=== PATIENT | female | born 1945 | race Caucasian/White ===

== ENCOUNTER 2016-06-12 10:25 | Emergency (ER) | payer MEDICARE, SELFPAY ==
[~2016-06-12 10:25] MED LIST: ASPIR-LOW81 MG PO; COMBIVENT0.074 GM/I INH; ISOSORBIDE MON120 MG PO; LEVOTHYROXINE88 MCG PO; METOPROLOL TART25 MG PO; PLAVIX 75 MG TA75 MG PO; PRAVASTATIN SOD40 MG PO; SPIRONOLACTONE25 MG PO; SYMBICORT 160-1 INHA INH; VITAMIN B-121000 MCG PO; VITAMIN D1000 UNI1 PO
== END 2016-06-12 15:30 | disposition home or self-care (01) ==
LOC: ER1 10:25
DX: S52.125A Nondisplaced fracture of head of left radius, initial encounter for closed fracture (principal); I25.810 Atherosclerosis of coronary artery bypass graft(s) without angina pectoris; I10 Essential (primary) hypertension; J44.9 Chronic obstructive pulmonary disease, unspecified; Z95.1 Presence of aortocoronary bypass graft; Z79.02 Long term (current) use of antithrombotics/antiplatelets; Z79.82 Long term (current) use of aspirin; W10.9XXA Fall (on) (from) unspecified stairs and steps, initial encounter; Y93.01 Activity, walking, marching and hiking; Z79.899 Other long term (current) drug therapy
CPT/HCPCS: 29105; 73030; 73060; 73080; 73090; 73110; 99283

== ENCOUNTER → 2020-06-18 | Outpatient (CLI) | payer MEDICARE ==
[~2020-06-18] MED LIST changes: +AUGMENTIN 875-1 EACH PO; +LASIX20 MG PO; +NITROGLYCERIN0.4 MG SL; +RANEXA1000 MG PO; +TOPROL XL25 MG PO; +ZOFRAN4 MG PO
== END ==
LOC: HEART 5 11:07
DX: J44.9 Chronic obstructive pulmonary disease, unspecified (principal); R94.2 Abnormal results of pulmonary function studies; F17.210 Nicotine dependence, cigarettes, uncomplicated
CPT/HCPCS: 94060; 94729

== ENCOUNTER → 2020-06-19 | Outpatient (CLI) | payer MEDICARE | LOC: KOH-I 09:37 | DX: F17.210 Nicotine dependence, cigarettes, uncomplicated (principal); R59.0 Localized enlarged lymph nodes | CPT/HCPCS: 71271 ==

== ENCOUNTER → 2020-06-20 | Outpatient (CLI) | payer MEDICARE | LOC: ECHO 10:23 → NM 13:00 | DX: I20.9 Angina pectoris, unspecified (principal); J44.9 Chronic obstructive pulmonary disease, unspecified | CPT/HCPCS: ECHO; 36600; 82803; 93306; J2785 ==

== ENCOUNTER 2020-08-20 10:07 | Emergency (ER) | payer MEDICARE, OTHER ==
[2020-08-20 11:50] LABS: HEMOGLOBIN 11.2 gm/dl (12.3-15.3); RED BLOOD COUNT 4.13 M/UL (4.00-5.10); WHITE BLOOD COUNT 7.8 K/UL (4.5-11.0)
[2020-08-20 12:13] LABS: BUN/CREATININE RATIO 9 (0-10)
== END 2020-08-20 14:34 | disposition home or self-care (01) ==
LOC: ER1 10:07
PROVIDERS: Physician Assistant
DX: R04.2 Hemoptysis (principal); I25.10 Atherosclerotic heart disease of native coronary artery without angina pectoris; J44.9 Chronic obstructive pulmonary disease, unspecified; Z20.822 Contact with and (suspected) exposure to COVID-19; F17.210 Nicotine dependence, cigarettes, uncomplicated; Z90.710 Acquired absence of both cervix and uterus; Z95.1 Presence of aortocoronary bypass graft
CPT/HCPCS: 0240U; 80053; 82550; 82553; 83874; 83880; 84484; 85025; 85379; 87070; 87205; 93005; 99285; Q9967

== ENCOUNTER 2020-09-05 14:13 | Emergency (ER) | payer MEDICARE, SELFPAY ==
[2020-09-05 14:59] LABS: HEMOGLOBIN 11.4 gm/dl (12.3-15.3); RED BLOOD COUNT 4.16 M/UL (4.00-5.10); WHITE BLOOD COUNT 9.1 K/UL (4.5-11.0)
[2020-09-05 15:45] LABS: BUN/CREATININE RATIO 11 (0-10)
[2020-09-05] MEDS ORDERED: AZITHROMYCIN250 MG PO (16:14)
[2020-09-05] MEDS ORDERED: OMNICEF 300 MG300 MG PO (16:14)
== END 2020-09-05 19:57 | disposition home or self-care (01) ==
LOC: ER1 14:13
PROVIDERS: Emergency Medicine
DX: R04.2 Hemoptysis (principal); I10 Essential (primary) hypertension; J44.9 Chronic obstructive pulmonary disease, unspecified; E87.1 Hypo-osmolality and hyponatremia; I25.10 Atherosclerotic heart disease of native coronary artery without angina pectoris; E78.5 Hyperlipidemia, unspecified; Z95.1 Presence of aortocoronary bypass graft; Z90.710 Acquired absence of both cervix and uterus; Z87.891 Personal history of nicotine dependence
CPT/HCPCS: 71045; 80053; 82550; 82553; 83874; 83880; 84484; 85025; 85379; 85610; 85730; 93005; 96374; 99284; J7030

== ENCOUNTER → 2020-10-10 | Day surgery (SDC) | payer MEDICARE ==
[~2020-10-10] MED LIST changes: +AZITHROMYCIN250 MG PO; +OMNICEF 300 MG300 MG PO
== END | disposition home or self-care (01) ==
LOC: OR 05:46
PROVIDERS: Internal Medicine Pulmonary Disease
PROC: 0BB38ZX Excision of Right Main Bronchus, Via Natural or Artificial Opening Endoscopic, Diagnostic (ICD-10-PCS; principal; 2020-10-10 07:30)
DX: D49.1 Neoplasm of unspecified behavior of respiratory system (principal); R59.0 Localized enlarged lymph nodes; J44.9 Chronic obstructive pulmonary disease, unspecified; I25.10 Atherosclerotic heart disease of native coronary artery without angina pectoris; F17.210 Nicotine dependence, cigarettes, uncomplicated; I10 Essential (primary) hypertension; I25.2 Old myocardial infarction; E78.5 Hyperlipidemia, unspecified; E03.9 Hypothyroidism, unspecified; M54.5 Low back pain; G47.33 Obstructive sleep apnea (adult) (pediatric); K21.9 Gastro-esophageal reflux disease without esophagitis; Z20.822 Contact with and (suspected) exposure to COVID-19; Z79.82 Long term (current) use of aspirin; Z79.02 Long term (current) use of antithrombotics/antiplatelets; Z79.899 Other long term (current) drug therapy; Z95.5 Presence of coronary angioplasty implant and graft; Z95.1 Presence of aortocoronary bypass graft
CPT/HCPCS: J0171; J2704; J7120

== ENCOUNTER → 2020-10-31 | Outpatient (CLI) | payer MEDICARE | LOC: MRI 12:40 | DX: C34.90 Malignant neoplasm of unspecified part of unspecified bronchus or lung (principal) | CPT/HCPCS: 70553; A9577 ==

== ENCOUNTER → 2020-11-06 | Day surgery (SDC) | payer MEDICARE | END | disposition home or self-care (01) | LOC: OR 05:38 | PROVIDERS: Surgery | PROC: 02HV33Z Insertion of Infusion Device into Superior Vena Cava, Percutaneous Approach (ICD-10-PCS; principal; 2020-11-06 07:30) | DX: C34.01 Malignant neoplasm of right main bronchus (principal); C79.9 Secondary malignant neoplasm of unspecified site; J44.9 Chronic obstructive pulmonary disease, unspecified; I25.10 Atherosclerotic heart disease of native coronary artery without angina pectoris; K59.09 Other constipation; E78.5 Hyperlipidemia, unspecified; I10 Essential (primary) hypertension; I25.2 Old myocardial infarction; E03.9 Hypothyroidism, unspecified; G47.33 Obstructive sleep apnea (adult) (pediatric); E55.9 Vitamin D deficiency, unspecified; F17.210 Nicotine dependence, cigarettes, uncomplicated; G25.81 Restless legs syndrome; E53.8 Deficiency of other specified B group vitamins; K21.9 Gastro-esophageal reflux disease without esophagitis; D64.9 Anemia, unspecified; R32 Unspecified urinary incontinence; Z20.822 Contact with and (suspected) exposure to COVID-19; Z95.1 Presence of aortocoronary bypass graft; Z79.82 Long term (current) use of aspirin; Z95.5 Presence of coronary angioplasty implant and graft; Z79.02 Long term (current) use of antithrombotics/antiplatelets; Z79.899 Other long term (current) drug therapy | CPT/HCPCS: 77001; C1769; C1788; J0690; J1100; J1642; J1644; J2001; J2405; J2704; J3010; J7030; J7040; J7120 ==

== ENCOUNTER 2021-01-09 17:44 | Inpatient (IN) | payer MEDICARE ==
[~2021-01-09] VITALS: Ht 157.5 cm; Wt 66.2 kg
[2021-01-09 20:08] LABS: HEMOGLOBIN 8.5 gm/dl (12.3-15.3); RED BLOOD COUNT 3.1 M/UL (4.00-5.10)
[2021-01-09 20:11] LABS: WHITE BLOOD COUNT 0.6 K/UL (4.5-11.0)
[2021-01-09 20:35] LABS: BUN/CREATININE RATIO 20 (0-10)
[2021-01-10] MEDS ORDERED: MAGIC MOUTH WASH (01:54)
[2021-01-10] MEDS ORDERED: [UNRECOGNIZED DRUG - OTHER] (01:54)
[2021-01-10] MEDS ORDERED: ONDANSETRON ODT8 MG PO (01:55)
[2021-01-10 05:59] LABS: HEMOGLOBIN 8.2 gm/dl (12.3-15.3); RED BLOOD COUNT 2.97 M/UL (4.00-5.10)
[2021-01-10 06:01] LABS: WHITE BLOOD COUNT 0.4 K/UL (4.5-11.0)
[2021-01-10 06:43] LABS: BUN/CREATININE RATIO 17 (0-10)
--- NOTE | 2021-01-10 15:21 | NUR ---
SCUDS APPLIED ORDERED
[2021-01-11 09:00] LABS: RED BLOOD COUNT 3.01 M/UL (4.00-5.10)
[2021-01-11 09:03] LABS: WHITE BLOOD COUNT 0.4 K/UL (4.5-11.0)
[2021-01-12 08:01] LABS: HEMOGLOBIN 7.1 gm/dl (12.3-15.3)
[2021-01-12 08:04] LABS: RED BLOOD COUNT 2.69 M/UL (4.00-5.10); WHITE BLOOD COUNT 0.9 K/UL (4.5-11.0)
[2021-01-12 08:06] LABS: BUN/CREATININE RATIO 14 (0-10)
[2021-01-13 07:29] LABS: HEMOGLOBIN 8.7 gm/dl (12.3-15.3)
[2021-01-13 07:36] LABS: RED BLOOD COUNT 3.11 M/UL (4.00-5.10); WHITE BLOOD COUNT 2.1 K/UL (4.5-11.0)
[2021-01-13 08:15] LABS: BUN/CREATININE RATIO 17 (0-10)
[2021-01-14 05:53] LABS: HEMOGLOBIN 8.7 gm/dl (12.3-15.3); RED BLOOD COUNT 3.05 M/UL (4.00-5.10)
[2021-01-14 06:09] LABS: WHITE BLOOD COUNT 3.2 K/UL (4.5-11.0)
[2021-01-14] MEDS ORDERED: DOCUSATE SODIU100 MG PO (10:17)
[2021-01-14] MEDS ORDERED: SENNA LAX8.6 MG PO (10:17)
== END 2021-01-14 13:56 | disposition home or self-care (01) | DRG 809 ==
LOC: ER1 17:44 → CDU 23:22 → MED SURG 4 23:22 → M/S 01-10 19:03
PROVIDERS: Internal Medicine; Physician Assistant; Registered Nurse; ADMIT Internal Medicine
PROC: 30233N1 Transfusion of Nonautologous Red Blood Cells into Peripheral Vein, Percutaneous Approach (ICD-10-PCS; principal; 2021-01-12)
DX: D61.811 Other drug-induced pancytopenia (principal); C34.90 Malignant neoplasm of unspecified part of unspecified bronchus or lung; D70.9 Neutropenia, unspecified; R50.81 Fever presenting with conditions classified elsewhere; Z20.822 Contact with and (suspected) exposure to COVID-19; R13.19 Other dysphagia; E78.5 Hyperlipidemia, unspecified; J43.9 Emphysema, unspecified; J45.909 Unspecified asthma, uncomplicated; G47.33 Obstructive sleep apnea (adult) (pediatric); F17.210 Nicotine dependence, cigarettes, uncomplicated; K12.32 Oral mucositis (ulcerative) due to other drugs; T50.8X5A Adverse effect of diagnostic agents, initial encounter; I10 Essential (primary) hypertension; I25.10 Atherosclerotic heart disease of native coronary artery without angina pectoris; Z95.1 Presence of aortocoronary bypass graft; Z79.01 Long term (current) use of anticoagulants; Z79.82 Long term (current) use of aspirin; Z95.5 Presence of coronary angioplasty implant and graft; Z90.710 Acquired absence of both cervix and uterus; Z82.49 Family history of ischemic heart disease and other diseases of the circulatory system; I25.2 Old myocardial infarction; Z82.0 Family history of epilepsy and other diseases of the nervous system; Z86.73 Personal history of transient ischemic attack (TIA), and cerebral infarction without residual deficits; Z80.0 Family history of malignant neoplasm of digestive organs
CPT/HCPCS: 0240U; 36415; 71045; 80048; 80053; 81001; 82550; 82553; 82962; 83605; 83690; 83874; 84484; 85025; 85379; 86850; 86900; 86901; 86920; 87040; 87086; 93005; 94640; 94664; 94760; 96376; G0378; J0692; J1442; J7050; P9016

== ENCOUNTER 2021-01-18 12:03 | Emergency (ER) | payer MEDICARE ==
[~2021-01-18 12:03] MED LIST changes: +DOCUSATE SODIU100 MG PO; +MAGIC MOUTH WASH; +ONDANSETRON ODT8 MG PO; +SENNA LAX8.6 MG PO; +[UNRECOGNIZED DRUG - OTHER]
[2021-01-18 13:06] LABS: HEMOGLOBIN 10.1 gm/dl (12.3-15.3); RED BLOOD COUNT 3.55 M/UL (4.00-5.10); WHITE BLOOD COUNT 11.5 K/UL (4.5-11.0)
[2021-01-18 13:27] LABS: BUN/CREATININE RATIO 18 (0-10)
== END 2021-01-18 18:00 | disposition home or self-care (01) ==
LOC: ER1 12:03
PROVIDERS: Family Medicine
DX: J44.9 Chronic obstructive pulmonary disease, unspecified (principal)
CPT/HCPCS: 71045; 80053; 81001; 82550; 82553; 83605; 84484; 85025; 85379; 85610; 87040; 87070; 87205; 93005; 94664; 99285; J1940; Q9967

== ENCOUNTER → 2021-04-28 | Outpatient (CLI) | payer MEDICARE ==
[2021-04-28 08:51] LABS: HEMOGLOBIN 10.6 gm/dl (12.3-15.3); RED BLOOD COUNT 3.48 M/UL (4.00-5.10); WHITE BLOOD COUNT 5.5 K/UL (4.5-11.0)
== END ==
LOC: CT 08:30
PROVIDERS: Internal Medicine Hematology & Oncology
DX: C34.2 Malignant neoplasm of middle lobe, bronchus or lung (principal); C77.1 Secondary and unspecified malignant neoplasm of intrathoracic lymph nodes; D70.9 Neutropenia, unspecified; R91.8 Other nonspecific abnormal finding of lung field; R59.0 Localized enlarged lymph nodes
CPT/HCPCS: 36415; 71260; 80053; 85025; Q9967

== ENCOUNTER → 2021-06-17 | Outpatient (CLI) | payer MEDICARE, OTHER | LOC: LAB 11:43 | DX: J44.9 Chronic obstructive pulmonary disease, unspecified (principal) | CPT/HCPCS: 36600; 82803 ==

== ENCOUNTER → 2021-10-09 | Outpatient (CLI) | payer MEDICARE | LOC: CT 13:02 | DX: C34.01 Malignant neoplasm of right main bronchus (principal); K57.92 Diverticulitis of intestine, part unspecified, without perforation or abscess without bleeding; R10.31 Right lower quadrant pain | CPT/HCPCS: 36415; 82565; 84520; Q9967 ==

== ENCOUNTER → 2021-10-21 | Outpatient (CLI) | payer MEDICARE | LOC: KOH-I 12:16 | DX: M54.50 Low back pain, unspecified (principal); M47.816 Spondylosis without myelopathy or radiculopathy, lumbar region | CPT/HCPCS: 72110 ==

== ENCOUNTER → 2021-10-28 | Outpatient (CLI) | payer MEDICARE | LOC: KOH-I 09:59 | DX: C34.01 Malignant neoplasm of right main bronchus (principal); M54.50 Low back pain, unspecified; M51.36 Other intervertebral disc degeneration, lumbar region | CPT/HCPCS: 72148 ==

== ENCOUNTER → 2021-10-30 | Outpatient (CLI) | payer MEDICARE ==
[2021-10-30 09:19] LABS: HEMOGLOBIN 11.2 gm/dl (12.3-15.3); RED BLOOD COUNT 3.88 M/UL (4.00-5.10); WHITE BLOOD COUNT 5.2 K/UL (4.5-11.0)
== END ==
LOC: CT 08:47
PROVIDERS: Internal Medicine Hematology & Oncology
DX: Z48.812 Encounter for surgical aftercare following surgery on the circulatory system (principal); Z95.1 Presence of aortocoronary bypass graft; Z86.16 Personal history of COVID-19
CPT/HCPCS: 36415; 71260; 80053; 83615; 85025; Q9967